=== PATIENT | female | born 1950 | race Caucasian/White ===

== ENCOUNTER 2025-06-27 10:23 | Emergency (ER) | payer MEDICARE, BC ==
[2025-06-27] MEDS ORDERED: Sodium Chloride 0.9% 10 ML Syringe FLUSH PRN (10:38)
[2025-06-27] MEDS: Ondansetron 4 MG/2 ML SDV IVPUSH ONE (10:43)
[2025-06-27 11:01] LABS: BASOPHILS ABSOLUTE AUTO 0.02 K/uL (0.02-0.10); BASOPHILS PERCENT AUTO 0.2 % (0.0-0.5); EOSINOPHILS ABSOLUTE AUTO 0.01 K/uL (0.04-0.40); EOSINOPHILS PERCENT AUTO 0.1 % (1.0-5.0); LYMPHOCYTES ABSOLUTE AUTO 1.64 K/uL (1.50-4.00); LYMPHOCYTES PERCENT AUTO 12.9 % (20.0-40.0); MEAN PLATELET VOLUME 10.1 fL (6.0-10.0); MONOCYTES ABSOLUTE AUTO 0.78 K/uL (0.20-0.80); MONOCYTES PERCENT AUTO 6.1 % (3.0-10.0); NEUTROPHILS ABSOLUTE AUTO 10.31 K/uL (2.00-7.50); NEUTROPHILS PERCENT AUTO 80.7 % (45.0-70.0); PLATELET COUNT,PLT 240 K/uL (150-500); RED BLOOD CELL COUNT 4.35 M/uL (3.80-5.80); RED CELL DISTRIBUTION WIDTH 14.0 % (11.0-16.0); WHITE BLOOD CELL COUNT,WBC 12.8 K/uL (4.0-11.0)
[2025-06-27] MEDS: Prochlorperazine 10 MG/2 ML SDV IVPUSH ONE (11:09)
[2025-06-27] MEDS: Prochlorperazine 10 MG/2 ML SDV ONE (11:11)
[2025-06-27 11:33] LABS: A/G RATIO 1.2 (0.8-2.0); ALANINE AMINOTRANSFERASE,ALT 28.0 U/L (12-78); ASPARTATE AMNIOTRANSFERASE,AST 18.0 U/L (15-37); BILIRUBIN TOTAL 1.5 mg/dL (0.0-1.0); BLOOD UREA NITROGEN,BUN 35.0 mg/dL (8-26); CARBON DIOXIDE,CO2 23.3 mmol/L (21.0-32.0); CHLORIDE,CL 102.0 mmol/L (98-107); CREATININE 1.8 mg/dL (0.55-1.02); EST CRCL DRUG DOSING (CG) 22.68 mL/min; ESTIMATED GFR 29.0 mL/min (>60); GLUCOSE RANDOM 135.0 mg/dL (74-100); POTASSIUM,K 3.5 mmol/L (3.5-5.1); PROTEIN TOTAL,TP 8.1 g/dL (6.4-8.2); SODIUM,NA 140.0 mmol/L (136-145)
[2025-06-27] MEDS ORDERED: Acetaminophen/HYDROcodone 325-5 MG Tab ONE (13:30)
[2025-06-27] MEDS ORDERED: Ondansetron 4 MG Tab.DIS ONE (13:30)
[2025-06-27 14:16] VITALS: BP 124/59; PULSE 65
== END 2025-06-27 13:56 | disposition home or self-care (01) ==
LOC: LB.ED 10:23
DX: K92.2 Gastrointestinal hemorrhage, unspecified (principal); Z79.899 Other long term (current) drug therapy; Z88.8 Allergy status to other drugs, medicaments and biological substances
CPT/HCPCS: 36415; 74176; 80053; 83690; 85025; 96361; 96365; 96375; 99284; 99284-25; A9270-GY; J0780; J2270; J2405; J2470; J7030; Q0162